=== PATIENT | female | born 1995 | race Caucasian/White ===

== ENCOUNTER 2020-04-11 19:32 | Emergency (ER) | payer BC ==
[~2020-04-11] VITALS: Ht 160 cm; Wt 94.7 kg
[2020-04-11] MEDS ORDERED: ketorolac trometh. 30mg/ml inj. IM ONE (20:25)
[2020-04-11 20:37] VITALS: BP 138/93
== END 2020-04-11 20:40 | disposition home or self-care (01) ==
LOC: ER 19:32
DX: S93.602A Unspecified sprain of left foot, initial encounter (principal); M79.672 Pain in left foot; Z88.1 Allergy status to other antibiotic agents; W18.40XA Slipping, tripping and stumbling without falling, unspecified, initial encounter; Y93.89 Activity, other specified; Y92.89 Other specified places as the place of occurrence of the external cause; Y99.8 Other external cause status
CPT/HCPCS: 73610; 73630; 96372; 99284; J1885

== ENCOUNTER 2020-10-29 19:49 | Emergency (ER) | payer BC, MEDICAID ==
[~2020-10-29] VITALS: Ht 160 cm; Wt 79.5 kg
--- NOTE | 2020-10-29 20:34 | NUR ---
PT MOTHER CAME TO ER AND STATED THAT SHE IS FROM [facility] AND SHE IS HERE FOR HER DAUGHTER SHE IS SUCIDAL ,PT WENT TO [place] LAST WEEK HAD A FALL HIT HER HEADSINCE THEN C/O NECK PAIN AND SEIZURES AND HAD HX OF SEIZURE DISORDER AND ON ANTIPSYCHOTIC MEDS AND STOPPED TAKING IT AND PT IS WEAK THEN USUAL AND THINK THAT SHE MIGHT HAVE A BLOOD CLOT AND SHE WILL ,PT TRIED TO DROWN IN BATH TUB A WEEK AGO PER PT MOTHER.PT MOTHER STATED THAT "SHE HAS MADE SEVERAL SUCIDAL ATTEMPT BY OVERDOSING ON PILLS AND YEST POLICE CAME TO THEIR HOUSE AND CRISIS PPL WANT HER TO BE ON MENTAL HOLD ".PT IS DENINING ANY SELF HARMING IDEATION AND DOES NOT WANT TO BE SEE DR UNTIL TODAY.
[2020-10-29] MEDS ORDERED: haloperidol lactate 5mg/ml inj IM ONE (23:40)
[2020-10-29] MEDS ORDERED: LORazepam 2 mg/ml vial IM ONE (23:40)
[2020-10-29] MEDS ORDERED: diphenhydrAMINE 50 mg/ml inj IM ONE (23:40)
[2020-10-29] MEDS ORDERED: LORazepam 2 mg/ml vial ONE (23:41)
[2020-10-29] MEDS ORDERED: haloperidol lactate 5mg/ml inj ONE (23:41)
[2020-10-29] MEDS ORDERED: diphenhydrAMINE 50 mg/ml inj ONE (23:42)
--- NOTE | 2020-10-29 23:53 | NUR ---
pt is now on 1798 - asked patient to please give a urine sample - she states she can't walk (she ambulated without incident to room from lobby) - she is given the option for straight cath and agrees but starts screaming and yelling while setting up for the procedure. advised patient that we would attempt at a later time and that MD had ordered medications for her to help her. Told pt what the mediations were and that we would be giving her 2 shots in the thigh. pt cooperated with med administration and then began screaming again once we were done. pt is in green scrubs and the room has been cleared for safety.
--- NOTE | 2020-10-30 00:50 | NUR ---
PT RESTING QUIETLY BUT WHEN YOU ENTER THE ROOM SHE STARTS SCREAMING AND HYPERVENTILATING.
[2020-10-30] MEDS: quetiapine 100mg tablet PO SCH ×2 (01:00→09:31)
--- NOTE | 2020-10-30 01:01 | NUR ---
Siria Mar: [phone], [facility] [place] Med list: Vraylar 1.5 mg Bowring 900 mg tablets NOT THE EXTENDED RELAEASE Klonopin 0.5 mg, 1 tablet in am, 1 tablet at noon, 2 tablet at bedside Lyrica liquid form for fibromyalgia Spironolactane 100 mg daily Visteral 50 mg 4x daily prn Valtrex 500 mg daily Psychiatrist: Dr. Prasanna Farrell [phone] (patient no longer sees) Current therapist: Tayo Quesada [phone]
[2020-10-30] MEDS ORDERED: ziprasidone IM 20mg inj **IM only IM ONE (01:25)
[2020-10-30] MEDS ORDERED: LORazepam 2 mg/ml vial IM ONE (01:25)
[2020-10-30] MEDS ORDERED: CARI1.5C PO ×2 (01:31)
[2020-10-30] MEDS ORDERED: HYDR50CA PO (01:31)
[2020-10-30] MEDS ORDERED: CLON-528 PO ×3 (01:31)
[2020-10-30] MEDS ORDERED: LITH450T2 PO (01:31)
[2020-10-30] MEDS ORDERED: PREG20SO PO (01:31)
[2020-10-30] MEDS ORDERED: SPIR100T5 PO (01:31)
[2020-10-30] MEDS ORDERED: VALA500T41 PO (01:31)
[2020-10-30] MEDS: hydrOXYzine 25 MG tablet PO SCH ×3 (02:00→14:12)
[2020-10-30 02:30] LABS: ETHANOL < 0.010 GM/DL (0.0-0.010)
[2020-10-30] MEDS ORDERED: haloperidol lactate 5mg/ml inj IM ONE (02:35)
[2020-10-30 03:01] LABS: BASOPHILS # (AUTO) 0.1 X10'3 (0-0.2); BASOPHILS % (AUTO) 0.5 % (0-1); EOSINOPHILS % (AUTO) 0.1 % (0-6); HEMATOCRIT 42.8 % (35.0-45.0); HEMOGLOBIN 14.1 g/dl (12.0-16.0); LYMPHOCYTES # (AUTO) 2.1 X10'3 (1.1-4.8); LYMPHOCYTES % (AUTO) 17.2 % (21-51); MEAN CORPUSCULAR HEMOGLOBIN 28.5 PG (27.0-31.0); MEAN CORPUSCULAR VOLUME 86.5 FL (78-98); MEAN PLATELET VOLUME 8.9 FL (7.4-10.4); MONOCYTES # (AUTO) 1.1 X10'3 (0-0.9); NEUTROPHILS # (AUTO) 8.9 X10'3 (1.8-7.7); NEUTROPHILS % (AUTO) 73.2 % (42-75); PLATELET COUNT 352 X10'3 (140-440); RED BLOOD COUNT 4.94 X10'6 (4.20-5.60); RED CELL DISTRIBUTION WIDTH 15.2 % (11.5-14.5); WHITE BLOOD COUNT 12.1 X10'3 (4.5-11.0)
[2020-10-30 03:19] LABS: HCG SERUM QL NEGATIVE
[2020-10-30 04:16] LABS: ALANINE AMINOTRANSFERASE 20 U/L (12-78); ALBUMIN 4.6 G/DL (3.4-5.0); ALBUMIN/GLOBULIN RATIO 1.6 (1.1-1.5); ALKALINE PHOSPHATASE 122 IU/L (46-116); ANION GAP 17 (8-16); ASPARTATE AMINO TRANSFERASE 22 U/L (10-37); BILIRUBIN,TOTAL 0.6 MG/DL (0.1-1.0); BLOOD UREA NITROGEN 9 MG/DL (7-18); BUN/CREATININE RATIO 8.7 (6.6-38.0); CALCIUM 9.9 MG/DL (8.5-10.1); CHLORIDE 103 MMOL/L (99-107); CREATININE 1.03 MG/DL (0.40-0.90); GLUCOSE 132 MG/DL (70-104); POTASSIUM 3.5 MMOL/L (3.5-5.1); SODIUM 139 MMOL/L (135-145); TOTAL PROTEIN 7.4 G/DL (6.4-8.2); eGFR 65 ML/MIN
[2020-10-30] MEDS ORDERED: normal saline 1000ML IV soln IVB ONE ×2 (05:55)
[2020-10-30 07:28] LABS: URINE HCG NEGATIVE (NEG)
[2020-10-30 07:29] VITALS: BP_DIAS 80
[2020-10-30 07:39] LABS: URINE AMPHETAMINE SCREEN NEGATIVE (Neg); URINE BARBITUATE SCREEN NEGATIVE (Neg); URINE BENZODIAZEPINES SCREEN NEGATIVE (Neg); URINE CANNABINOID SCREEN POSITIVE (Neg); URINE COCAINE SCREEN NEGATIVE (Neg); URINE METHADONE SCREEN NEGATIVE (Neg); URINE OPIATE SCREEN NEGATIVE (Neg); URINE PHENCYCLIDINE SCREEN NEGATIVE (Neg)
[2020-10-30] MEDS ORDERED: CARIPRAZINE 1.5 MG CAPSULE PO SCH ×2 (08:00→21:00)
[2020-10-30] MEDS ORDERED: clonazePAM 0.5mg tablet PO SCH ×3 (08:00→21:00)
[2020-10-30] MEDS ORDERED: valacyclovir 500mg tablet PO SCH (08:00)
--- NOTE | 2020-10-30 08:27 | NUR ---
Packet faxed to [facility]
[2020-10-30] MEDS ORDERED: spironolactone 25 MG tablet PO SCH (08:30)
[2020-10-30 09:32] VITALS: BP_SYST 114
[2020-10-30] MEDS: pregabalin 75mg capsule PO SCH ×2 (09:32→14:12)
--- NOTE | 2020-10-30 10:14 | NUR ---
PT'S BOYFRIEND BEDSIDE
--- NOTE | 2020-10-30 10:38 | NUR ---
Patient placed on 5150 by [facility]
--- NOTE | 2020-10-30 12:06 | NUR ---
Mother is here sitting at patient's bedside.
[2020-10-30] MEDS ORDERED: QUET-1 PO (14:00)
[2020-10-30] MEDS ORDERED: OLANZapine **IM** 10 mg inj. IM ONE (14:40)
[2020-10-30] MEDS ORDERED: lithium carbonate 450mg CR tablet PO SCH (21:00)
== END 2020-10-30 15:11 ==
LOC: ER 19:50
DX: F23 Brief psychotic disorder (principal); R11.0 Nausea; Z88.1 Allergy status to other antibiotic agents; Z79.2 Long term (current) use of antibiotics; Z79.899 Other long term (current) drug therapy
CPT/HCPCS: 36415; 70450; 71045; 80053; 80178; 80305; 80320; 81025; 84443; 84703; 85025; 93005; 96360; 96372; 99291; J1200; J1630; J2060; J3490; J7030; Q0177

== ENCOUNTER 2020-10-30 12:59 | Inpatient (IN) | payer BC, MEDICAID ==
[~2020-10-30] VITALS: Ht 160 cm; Wt 94.7 kg
[~2020-10-30 12:59] MED LIST: CARI1.5C PO; CLON-528 PO; HYDR50CA PO; LITH450T2 PO; PREG20SO PO; SPIR100T5 PO; VALA500T41 PO
[2020-10-30] MEDS ORDERED: traZODone 50mg tablet PO PRN (13:40)
[2020-10-30] MEDS ORDERED: mag hydrox/Alum hydrox/simeth 30ml oral suspension PO PRN (13:40)
[2020-10-30] MEDS ORDERED: magnesium hydroxide 30ml (MOM) UD suspension PO PRN (13:40)
[2020-10-30] MEDS ORDERED: LORazepam 1 MG tablet PO PRN (13:40)
[2020-10-30] MEDS ORDERED: loperamide 2mg capsule PO PRN (13:40)
[2020-10-30] MEDS ORDERED: NICOTINE POLACRILEX 2 MG LOZENGE BC PRN (13:40)
[2020-10-30] MEDS ORDERED: acetaminophen 325mg tablet PO PRN ×2 (13:40)
[2020-10-30] MEDS ORDERED: QUET-1 PO (14:00)
--- NOTE | 2020-10-30 15:09 | NUR ---
Admission note: Pt admitted today on 5150 for DTS/GD at 1507 from the ER. Pt has not been eating or sleeping for the past few days and mom reported suicidal threats telling mom "You'll never see me again". Pt arrived in ER complaining of anxious, chest pain, seizures, pressured speech, Ghost tingles, nausea, flashing lights, pain all over. She stopped taking her medications a week ago stating they are "Toxic for her body." Pt has history of Fibromyalgia and bipolar. Positive tox screen THC. Pt uncooperative while attempting to escort pt upstairs and needed sedation to be admitted.
[2020-10-30 17:34] VITALS: BP 143/68
--- NOTE | 2020-10-30 18:03 | NUR ---
Pt got to the floor and was talking with rapid, pressured speech, barely taking a breath. She was cussing and threatening. Pt did allow skin assessment and took a shower, then went to her room and before nurse could get to her, pt fell asleep and was unarousable for admission.
[2020-10-30] MEDS: hydrOXYzine 25 MG tablet PO SCH (20:00)
[2020-10-30] MEDS: clonazePAM 0.5mg tablet PO SCH (21:56)
[2020-10-30] MEDS: pregabalin 75mg capsule PO SCH (21:56)
[2020-10-30] MEDS: CARIPRAZINE 1.5 MG CAPSULE PO SCH (21:56)
[2020-10-30] MEDS: lithium carbonate 450mg CR tablet PO SCH (21:57)
--- NOTE | 2020-10-31 01:47 | NUR ---
Progress note; Pt woke up and was yelling about her sweatshirt, attempted to complete assessment but patient was unable to hold conversation, stating "I dont want to talk about it." Pt was given hs meds and a blanket and went back to sleep.
[2020-10-31] MEDS: hydrOXYzine 25 MG tablet PO SCH ×4 (02:00→20:40)
[2020-10-31 07:37] LABS: HEMOGLOBIN A1C 5.3 % (4.5-6.2)
[2020-10-31 07:42] LABS: CHOLESTEROL 157 MG/DL (0-200); HDL CHOLESTEROL 39 MG/DL (35-60); LDL CHOLESTEROL 90 MG/DL (50-100); TRIGLYCERIDES 139 MG/DL (20-135)
[2020-10-31 08:00] VITALS: BP 129/74
[2020-10-31] MEDS: quetiapine 100mg tablet PO SCH (08:06)
[2020-10-31] MEDS: CARIPRAZINE 1.5 MG CAPSULE PO SCH ×2 (08:06→20:39)
[2020-10-31] MEDS: clonazePAM 0.5mg tablet PO SCH ×3 (08:06→20:39)
[2020-10-31] MEDS: pregabalin 75mg capsule PO SCH ×3 (08:06→20:39)
[2020-10-31] MEDS: valacyclovir 500mg tablet PO SCH (08:07)
[2020-10-31] MEDS: spironolactone 25 MG tablet PO SCH (08:10)
[2020-10-31] MEDS ORDERED: hydrOXYzine 25 MG tablet PO PRN (13:10)
[2020-10-31] MEDS ORDERED: QUEtiapine 25mg tablet PO PRN ×2 (13:10)
--- NOTE | 2020-10-31 17:45 | NUR ---
Nursing Progress Note: Legal hold:515; Client on voluntary/involuntary status for DTO Report received from RN with use of SBAR REASON FOR ADMIT: Pt admitted today on 5150 for DTS/GD from [facility]. Pt has not been eating or sleeping for the past few days and mom reported suicidal threats telling mom "You'll never see me again". Pt arrived in ER complaining of anxious, chest pain, seizures, pressured speech, Ghost tingles, nausea, flashing lights, pain all over. She stopped taking her medications a week ago stating they are "Toxic for her body." Pt has history of Fibromyalgia and bipolar. Positive tox screen THC. Assessment What has happened this shift: Received Pt in bed sleeping without distress at the beginning of the shift. Pt not arousable for vitals, but did wake when this RN was giving AM meds. Medication purposes and doses reviewed with Pt and meds were taken. Attempted to make Pt as comfortable and non-threatened on the unit. Pt stated her legs were not working so this RN allowed breakfast in bed and stated I would return to help with toileting and Adls. Pt ate in bed and was seen 10 minutes later walking the halls and asking for headphones. Pt c/o losing a red sweater and was also angry with mother, stating she came to the ER because of a heart attack and ended up on the psych [facility]. Pts mother and BF came to visit in AM. She visited with BF and became loud and cursing. When limits set on loud cursing, pt became louder and resistive to being told what to do. Pt listened to headphones and napped most of the afternoon. S/I, H/I denies A/VH: denies Sleep: No naps ADL's: Independent Group attendance: No Were meds taken : Yes Any med S/E: None reported Mental Status Exam Appearance: clean in green scrubs Eye contact: Fair Behavior: Lethargic, labile Speech: Normal Mood: Anxious Affect: Congruent with mood Thought process: Circumstantial Thought Content: How she was fooled into being here Cognition: Oriented x 3 Insight: Poor Judgment:Poor Therapeutic interventions: 1:1 assessment, therapeutic communication, encouragement to express thoughts and feelings, active listening, encouragement to take anxiety medication, medication education and monitoring, encouragement to come to meals and participate in unit activities, behavior monitoring and intervention as needed; reassured pt that she is safe, distraction, redirection, Q 15 minute safety checks. PRN's used: Restraints/seclusion/emergency medication: None Justification of Continued Inpatient Treatment: Patient is in need of inpatient treatment, eval for medication and follow up care. Pt needs crisis interruption and stabilization with medication management and monitoring in a safe and therapeutic environment until stable.
[2020-10-31 19:30] VITALS: BP 133/74
[2020-10-31] MEDS: lithium carbonate 450mg CR tablet PO SCH (20:40)
--- NOTE | 2020-10-31 22:20 | NUR ---
Nursing Progress Note: Legal hold:5150; Client on involuntary status for DTS/GD Report received from RN with use of SBAR REASON FOR ADMIT: Pt admitted today on 5150 for DTS/GD from [facility] ER. Pt has not been eating or sleeping for the past few days and mom reported suicidal threats telling mom "You'll never see me again". Pt arrived in ER complaining of anxious, chest pain, seizures, pressured speech, Ghost tingles, nausea, flashing lights, pain all over. She stopped taking her medications a week ago stating they are "Toxic for her body." Pt has history of Fibromyalgia and bipolar. Positive tox screen THC. Assessment What has happened this shift: Pt was requesting a phone at change of shift and spent some time talking on the phone with her boyfriend. Pt was calm cooperative and pleasant tonight. States she likes to sing and listening to head phones is helpful in keeping her calm. "its really nice being in a place with head phones" Pt socialized with peers somewhat, and spent time coloring. Pt was med compliant at med pass, but became irritable when talking about her day stating "Im not even supposed to be here, this is the worst hospital ever, I came in here because I was having a heart attack and they brought me here. I have heart attacks all the time." Pt denies any chest pain during this conversation. Pt is med compliant before going to bed. S/I, H/I denies A/VH: denies Sleep: see sleep hours ADL's: Independent Group attendance: No Were meds taken : Yes Any med S/E: None reported Mental Status Exam Appearance: clean in green scrubs Eye contact: Fair Behavior: Lethargic, labile Speech: Normal Mood: Anxious Affect: constricted, labile Thought process: Circumstantial Thought Content: How she was fooled into being here Cognition: Oriented x 3 Insight: Poor Judgment:Poor Therapeutic interventions: 1:1 assessment, therapeutic communication, encouragement to express thoughts and feelings, active listening, encouragement to take anxiety medication, medication education and monitoring, encouragement to come to meals and participate in unit activities, behavior monitoring and intervention as needed; reassured pt that she is safe, distraction, redirection, Q 15 minute safety checks. PRN's used: Restraints/seclusion/emergency medication: None Justification of Continued Inpatient Treatment: Patient is in need of inpatient treatment, eval for medication and follow up care. Pt needs crisis interruption and stabilization with medication management and monitoring in a safe and therapeutic environment until stable.
[2020-11-01] MEDS: hydrOXYzine 25 MG tablet PO SCH ×4 (02:00→20:26)
[2020-11-01 07:36] VITALS: BP 146/78
[2020-11-01] MEDS: quetiapine 100mg tablet PO SCH ×2 (08:00→08:46)
--- NOTE | 2020-11-01 08:23 | NUR ---
Pt. attended group today. We talked about how to recognize when you are in a Co-dependent relationship. We read through a Personal Bill of Rights sheet, and they each discussed with rights they most identified with in order for them to develop their own bill of rights. Pt. engaged in the group well, she quickly dove in and shared her thoughts about co-dependency, her using her own relationship with her boyfriend as an example when she was sharing. Her thought process tended to be circumstantial providing many details before she got to her point. Many times she did not stay with her original thought and veered off into loose associations. She appeared angry a few times at the fact that she was at [facility] stating, "I came to the hospital because I was having a heart attack. I don't understand why I am here". Later in the group she reported that she has felt depression since a child and she doesn't understand why asking what can she do about this. In the next breath she shared how she is very self aware and this helps her with her depression as she knows what triggers it. She was alert and oriented X 4. She was calm and pleasant to her peers and this Patrol Police Sergeant, very open to talking with the group. Magaly Styles, NEIDA
[2020-11-01] MEDS: clonazePAM 0.5mg tablet PO SCH ×3 (08:47→13:05)
[2020-11-01] MEDS: CARIPRAZINE 1.5 MG CAPSULE PO SCH ×2 (08:48→20:29)
[2020-11-01] MEDS: valacyclovir 500mg tablet PO SCH (08:49)
[2020-11-01] MEDS: pregabalin 75mg capsule PO SCH ×3 (08:50→20:26)
[2020-11-01] MEDS: spironolactone 25 MG tablet PO SCH (08:51)
[2020-11-01] MEDS ORDERED: lamoTRIgine 25mg tablet PO ONE (15:20)
--- NOTE | 2020-11-01 16:23 | NUR ---
Nursing Progress Note: Legal hold:5150; Client on voluntary/involuntary status for DTO Report received from RN with use of SBAR REASON FOR ADMIT: Pt admitted today on 5150 for DTS/GD from [facility] ER. Pt has not been eating or sleeping for the past few days and mom reported suicidal threats telling mom "You'll never see me again". Pt arrived in ER complaining of anxious, chest pain, seizures, pressured speech, Ghost tingles, nausea, flashing lights, pain all over. She stopped taking her medications a week ago stating they are "Toxic for her body." Pt has history of Fibromyalgia and bipolar. Positive tox screen THC. Assessment What has happened this shift: Patient was asleep at change of shift and up before breakfast. Patient appears happy and interacts with peers. Patient was singing in the Community Room when her roommate was playing guitar. Patient refused her Seroquel this morning. When RN sat with patient she also stated that she had not been seen by a psychiatrist. Patient was seen by Dr Terrell. Patient denies depression. Patient refused to allow staff to speak to her mother. Mother was angry on the phone because patient told her that she had had a heart attack and the mother wasn't informed. Mother was also upset because she hadn't seen a psychiatrist yet. Staff was unable to address the concerns because we did not have permission from patient. Patient has poor insight to her diagnosis. Patient doesn't believe she belongs here. S/I, H/I denies A/VH: denies Sleep: laid in her bed a few times during the day. ADL's: Independent Group attendance: No Were meds taken : Refused Seroquel only Any med S/E: None reported Mental Status Exam Appearance: clean in green scrubs Eye contact: Fair Behavior: Social with peers. Laughing, talkative Speech: Normal Mood: Euthymic Affect: Congruent with mood Thought process: Delusional (I had a heart attack, No psychiatrist has seen me) Thought Content: Getting needs met. Cognition: Oriented x 3 Insight: Poor Judgment:Poor Therapeutic interventions: 1:1 assessment, therapeutic communication, encouragement to express thoughts and feelings, active listening, encouragement to take anxiety medication, medication education and monitoring, encouragement to come to meals and participate in unit activities, behavior monitoring and intervention as needed; reassured pt that she is safe, distraction, redirection, Q 15 minute safety checks. PRN's used: Restraints/seclusion/emergency medication: None Justification of Continued Inpatient Treatment: Patient is in need of inpatient treatment, eval for medication and follow up care. Pt needs crisis interruption and stabilization with medication management and monitoring in a safe and therapeutic environment until stable.
[2020-11-01] MEDS ORDERED: DOXYCYCLINE 100MG CAPSULE PO SCH (18:12)
[2020-11-01 19:14] VITALS: BP 140/75
[2020-11-01] MEDS: lithium carbonate 450mg CR tablet PO SCH (20:26)
[2020-11-01] MEDS ORDERED: Melatonin 3mg tablet PO SCH (21:00)
[2020-11-01] MEDS ORDERED: clonazePAM 0.5mg tablet PO SCH (21:00)
--- NOTE | 2020-11-01 23:07 | NUR ---
Nursing Progress Note: Legal hold:5150; Client on involuntary status for DTS/GD Report received from Guido HENRY with use of SBAR REASON FOR ADMIT: Pt admitted today on 5150 for DTS/GD from [facility] ER. Pt has not been eating or sleeping for the past few days and mom reported suicidal threats telling mom "You'll never see me again". Pt arrived in ER complaining of anxious, chest pain, seizures, pressured speech, Ghost tingles, nausea, flashing lights, pain all over. She stopped taking her medications a week ago stating they are "Toxic for her body." Pt has history of Fibromyalgia and bipolar. Positive tox screen THC. Assessment What has happened this shift: Pt was on the phone in her room at change of shift, she had multiple phone calls this evening and also spoke with her therapist over the phone. Pt states her day was good and she feels like her medications are straight now. "I dont need to get two valium shots, my boyfriend saw them give me two shots and take my clothes away and they didnt need to take my clothes." Pt is perseverating on the day of her admission and getting the shot in the ER before she came to [facility] as she spoke of yesterday. Pt reports sleeping well last night and is hopeful she can go home soon. Pt is pleasant tonight continues to be disorganized at times, socializing with roommate before going to bed. S/I, H/I denies A/VH: denies Sleep: see sleep hours ADL's: Independent Group attendance: No Were meds taken : yes Any med S/E: None reported Mental Status Exam Appearance: clean in green scrubs Eye contact: Fair Behavior: Social with peers. Laughing, talkative Speech: Normal Mood: Euthymic Affect: Constricted Thought process: disorganized Thought Content: Getting needs met. Cognition: Oriented x 3 Insight: Poor Judgment:Poor Therapeutic interventions: 1:1 assessment, therapeutic communication, encouragement to express thoughts and feelings, active listening, encouragement to take anxiety medication, medication education and monitoring, encouragement to come to meals and participate in unit activities, behavior monitoring and intervention as needed; reassured pt that she is safe, distraction, redirection, Q 15 minute safety checks. PRN's used: Restraints/seclusion/emergency medication: None Justification of Continued Inpatient Treatment: Patient is in need of inpatient treatment, eval for medication and follow up care. Pt needs crisis interruption and stabilization with medication management and monitoring in a safe and therapeutic environment until stable.
[2020-11-02] MEDS: hydrOXYzine 25 MG tablet PO SCH ×3 (02:00→13:11)
[2020-11-02 07:47] VITALS: BP 146/90
[2020-11-02 07:52] VITALS: BP_SYST 146
[2020-11-02] MEDS: spironolactone 25 MG tablet PO SCH (07:52)
[2020-11-02] MEDS: valacyclovir 500mg tablet PO SCH (07:53)
[2020-11-02] MEDS: pregabalin 75mg capsule PO SCH ×2 (07:53→13:10)
[2020-11-02] MEDS: CARIPRAZINE 1.5 MG CAPSULE PO SCH (07:53)
[2020-11-02] MEDS ORDERED: lamoTRIgine 25mg tablet PO SCH (08:00)
[2020-11-02] MEDS ORDERED: clonazePAM 0.5mg tablet PO SCH (08:00)
--- NOTE | 2020-11-02 08:39 | NUR ---
Assessment: Presenting Issues: Pt is better today and participated in her psychosocial assessment. Pt contnues to perseverate over the events of the past 2 weeks of her life. During which time she had displayed significant emotional lability vascilating between calm, anger, irritability & crying. During the same 2 weeks period pt had also experienced significant paranoiia believing that people were talking about her and making fun of her. One week prior to admission, pt reported that late at night there were transportaion workers outside her apartment making a lot of noise w/their tractors so she had difficulties sleeping, she attempted to communicate with them but they "laughed and jeered at me, one of them even sharpened a knife w/a large blade in front of me". Pt also continues to perseverate on her admission process, pt believed that she was suffering a heart attach and was in the ICU, as a result LE is now monitoring her (none of this is factual). Interventions: SS met w/pt and engaged her in completing her psychosocial assessment. MSE: Appearance: in hospital scrubs, a little disheveled Behavior: cooperative Mood: Anxious Affect: WNL TP: Circumstantial TC: Denies SI/HI/AH/VH; significant paranoiia & delusional beliefs Insight: Guarded Judgment: Guarded Plan: Pt's 5150 expires today, she is agreeable to stay vol until Friday so SS can complete DCP with her. Xochitl Cerda LCSW Addendum: 11/02/20 at 0933 by Xochitl HUFF Amended: Links added.
[2020-11-02] MEDS ORDERED: CLON-528 PO (11:30)
[2020-11-02] MEDS ORDERED: VALA500T41 PO (11:30)
[2020-11-02] MEDS ORDERED: PREG20SO PO (11:30)
[2020-11-02] MEDS ORDERED: SPIR100T5 PO (11:30)
[2020-11-02] MEDS ORDERED: LAMO25TA5 PO (11:30)
[2020-11-02] MEDS ORDERED: LITH450T2 PO (11:30)
[2020-11-02] MEDS ORDERED: DOXY-224 PO (11:30)
[2020-11-02] MEDS ORDERED: MELA3CAP2 PO (11:30)
[2020-11-02] MEDS ORDERED: CARI1.5C PO (11:30)
[2020-11-02] MEDS ORDERED: HYDR50CA PO (11:30)
--- NOTE | 2020-11-02 14:21 | NUR ---
Pt attended group today. We did an art therapy exercise where they could pick between three templates, a heart, a chefornak or trace their hands. If they picked the heart or chefornak they had to place the things they no longer want in their life on the outside of the chefornak or heart and things they wanted in their life on the inside. If they picked tracing their hands they had to pick one hand for writing the things they want to let go of and on the other hand the things they want to hold/keep in their lives. This Stock Clerk led a discussion after they finished the art work. Pt came into group late but jumped right in and chose to work with the heart template. She engaged well in the activity and discussion. She appropriately shared what she was letting go of and what she wanted to keep in her heart. She reported that she needed help with shopping as she tends to spend too much money. She had a wide range of things she was keeping in her heart and processed how she needs to get back to writing and her creative pursuits as this is her way of coping usually. She was alert and oriented X 4. Her thought content and thought process were WNL. She appeared to enjoy socializing with her peers and was able to relate well with others. She was calm and pleasant to work with. Magaly Styles LCSW
--- NOTE | 2020-11-02 14:55 | NUR ---
DISCHARGE NOTE: Pt. discharged to home picked up by significant other in car. Pt.'s scripts faxed to pharmacy. RN went over D/C paper work and pt. signed all paperwork and verbalized understanding of f/u plan and home medications. Pt. is A&Ox4 and denies SI/HI, A/V hallucinations. Pt. discharged with all belongings and valuables. Pt. is calm and cooperative and showed improvement during hospitalization. Pt. in no apparent distress.
== END 2020-11-02 14:55 | disposition home or self-care (01) | DRG 885 ==
LOC: ADULT MH 15:13
PROVIDERS: ADMIT Psychiatry & Neurology Psychiatry; ATTEND Psychiatry & Neurology Psychiatry
DX: F31.64 Bipolar disorder, current episode mixed, severe, with psychotic features (principal); R45.851 Suicidal ideations; E11.9 Type 2 diabetes mellitus without complications; E66.3 Overweight; F12.10 Cannabis abuse, uncomplicated; F17.200 Nicotine dependence, unspecified, uncomplicated; G40.909 Epilepsy, unspecified, not intractable, without status epilepticus; I10 Essential (primary) hypertension; M79.7 Fibromyalgia; Z88.0 Allergy status to penicillin; S09.8XXA Other specified injuries of head, initial encounter; X58.XXXA Exposure to other specified factors, initial encounter; Y93.89 Activity, other specified; Y92.89 Other specified places as the place of occurrence of the external cause; Y99.8 Other external cause status; Z91.14 Patient's other noncompliance with medication regimen; Z68.37 Body mass index [BMI] 37.0-37.9, adult; Z88.1 Allergy status to other antibiotic agents
CPT/HCPCS: 36415; 80061; 83036; 87081; Q0177